=== PATIENT | male | born 2000 | race African-American/Black ===

== ENCOUNTER 2023-07-28 18:21 | Emergency (ER) | payer SELFPAY ==
[2023-07-28 19:22] VITALS: BP 117/67; PULSE 72; RESP 18; TEMP 36.9; O2SAT 97; BMI 32.3
--- NOTE | 2023-07-28 21:27 | ED.NAVMDI ---
HPI - Nausea/Vomiting/Diarrhea General Chief complaint: Nausea/Vomiting/Diarrhea Stated complaint: nausea and vomiting Time Seen by Provider: 07/28/23 21:18 Source: patient Mode of arrival: ambulatory Limitations: no limitations History of Present Illness HPI Narrative: 23-year-old male who was otherwise healthy came in for evaluation of nausea and vomiting since 03:00, patient had multiple vomiting while in the emergency department, no diarrhea, no sick contacts, no suspicion of exposure to bad food, no recent travel, patient also declined any abdominal discomfort. Patient smokes marijuana daily never had nausea or vomiting issue in the past. Related Data Allergies Allergy/AdvReac Type Severity Reaction Status Date / Time No Known Allergies Allergy Verified 07/28/23 19:22 Review of Systems Review of Systems: All other systems are reviewed and are negative Constitutional: Reports as per HPI and Reports no additional constitutional complaints Eyes: Reports as per HPI and Reports no additional eye complaints Reports system reviewed and no additional complaints, except as documented Cardiovascular: Reports as per HPI and Reports no additional cardiovascular complaints Respiratory: Reports as per HPI and Reports no additional respiratory complaints Gastrointestinal: Reports as per HPI and Reports no additional gastrointestinal complaints Genitourinary: Reports no additional female genitourinary complaints Musculoskeletal: Reports no additional musculoskeletal complaints Skin/Breast: Reports system reviewed and no additional complaints, except as docu Psychiatric: Reports no additional psychiatric complaints Endocrine: Reports no additional endocrine complaints Hematologic/Lymphatic: Reports no additional hematologic/lymphatic complaints Allergic/Immunologic: Reports no additional allergic/immunologic complaints Reports system reviewed and no additional complaints, except as documented and Reports Abnormal speech present [facility] Social History Social History Advance Directives: No Advance Directives Information Provided: No Physical Exam Vital Signs: Vital Signs: Last Vital Signs Temp 98.4 F 07/28/23 19:22 Pulse 72 07/28/23 19:22 Resp 18 07/28/23 19:22 BP 117/67 07/28/23 19:22 Pulse Ox 97 07/28/23 19:22 O2 Del Method Room Air 07/28/23 19:22 BMI result Body Mass Index 32.3 Vital signs have been reviewed and appear to be correct. Blood pressure elevated. Heart rate normal. Respiratory rate normal. Temperature normal. Oxygen saturation normal. Appearance: Alert. Oriented X3. No acute distress. Head: Normal external exam. Normocephalic. Atraumatic. No [place] signs noted. No raccoon eyes noted Eyes: PERRLA. EOMI. Conjunctiva and sclera normal. Eyelids normal. ENT: TM's Normal. Pharynx normal. Uvula midline. Moist mucous membranes. No trismus noted. No drooling noted. No muffled voice noted. Neck: Normal inspection. Neck supple. FROM. No adenopathy. Thyroid Normal. No meningeal signs. No neck mass noted. CVS: Normal heart rate and rhythm. Heart sound normal. No murmurs noted. Pulses normal throughout. Respiratory: No respiratory distress. Painless inspiration. Breath sounds normal. No wheezes/rales/rhonchi noted. Chest nontender. No accessory muscle usage noted or decreased air movement noted. Abdomen: Soft and nontender. Bowel sounds normal in all 4 quadrants. No distention noted. No organomegaly noted. No visible injury noted. Back: No CVA tenderness. Full range of motion noted. Skin: Skin warm and dry. Normal skin color. Normal skin turgor. No rashes/lesions/lacerations noted. Extremities: No lower extremity edema. Extremities exhibit normal range of motion. Extremities nontender. Neuro: Oriented X 3. Cranial nerve exam: II-XII are grossly intact No motor deficit. No sensory deficit. Reflexes normal. Course Reevaluation(s) Reevaluation #1: 23-year-old male came in for evaluation of nausea and vomiting, physical exam showed no abdominal pain, normal WBCs, normal electrolytes, UA is revealing RBCs patient declined any abdominal or flank pain. Patient now is able to tolerate p.o. intake with no nausea or vomiting. Patient's symptoms could be related to a daily smoking marijuana that was discussed with the patient. Time: 00:02 Medications Administered Discontinued Medications Generic Name Dose Route Start Last Admin Trade Name Freq PRN Reason Stop Dose Admin Famotidine 20 mg 07/28/23 21:25 07/28/23 22:27 Famotidine/Pf 20 Mg/2 Ml Vial IVPUSH 07/28/23 21:26 20 mg ONCE ONE Administration Sodium Chloride 1,000 mls @ 999 mls/hr 07/28/23 21:25 07/28/23 22:20 Ns IV 07/28/23 22:25 999 mls/hr .Q1H1M ONE Administration Ondansetron HCl 4 mg 07/28/23 21:25 07/28/23 22:27 Ondansetron Hcl 4 Mg/2 Ml Vial IVPUSH 07/28/23 21:26 4 mg ONCE ONE Administration Medical Decision Making Differential Diagnosis Differential Diagnoses: The differential diagnosis associated with the presentation includes ( Electrolyte abnormality, severe anemia, UTI, marijuana induced emesis, dehydration, food poisoning, gastroenteritis, gastritis.) Admission/Observation Consideration of admission/observation: Escalation of care including admission/observation considered Lab Data [facility] Lab Attestation statement: I reviewed the patient's lab results. 07/28/23 21:45 07/28/23 21:45 Labs: Lab Results 07/28/23 07/28/23 Range/Units 21:45 23:39 WBC 8.9 (4.8-10.8) X10*3/uL RBC 5.13 (4.60-5.80) X10*6/uL Hgb 14.4 (14.0-18.0) g/dl Hct 41.9 L (42.0-52.0) % MCV 81.7 (80.0-98.0) fL MCH 28.1 (27.0-33.0) pg MCHC 34.4 (31.0-36.0) g/dl RDW 12.6 (11.0-16.0) % Plt Count 277 (160-400) X10*3/uL MPV 9.2 L (9.4-12.4) fL Immature Gran % (Auto) 0.2 (0.0-0.4) % Neut % (Auto) 84.1 H (45-73) % Lymph % (Auto) 6.1 L (20-40) % [place] % (Auto) 9.5 (2-11) % Eos % (Auto) 0.0 (0-4) % Baso % (Auto) 0.1 (0-2) % Lymph # (Auto) 0.5 L (1.2-4.9) X10*3/uL [place] # (Auto) 0.9 (0.1-1.2) X10*3/uL Eos # (Auto) 0.0 (0.0-0.4) X10*3/uL Baso # (Auto) 0.0 (0.0-0.2) X10*3/uL Abs Immat Gran (auto) 0.02 (0.00-0.03) X10*3/uL Absolute Neuts (auto) 7.5 (2.0-8.3) x10*3/uL Absolute Nucleated RBC 0.000 (0.0-0.012) X10*3/uL Nucleated RBC % (auto) 0.0 (0.0-0.2) /100WBC Sodium 137 (135-145) mmol/L Potassium 3.4 (3.3-5.1) mmol/L Chloride 104 (96-108) mmol/L Carbon Dioxide 25 (22-29) mmol/L Anion Gap 11 L (12-20) BUN 11 (9-16) mg/dL Creatinine 1.03 (0.5-1.4) mg/dL Estim Creat Clear Calc 116.6 Estimated GFR > 60 Random Glucose 104 (60-115) mg/dL Calcium 9.3 (8.4-10.2) mg/dL Total Bilirubin 0.8 (0.0-1.0) mg/dL Direct Bilirubin 0.3 (0.0-0.5) mg/dL AST 22 (5-37) U/L ALT 17 (0-40) U/L Alkaline Phosphatase 51 (39-117) U/L Total Protein 7.3 (6.5-8.0) g/dL Albumin 4.5 (3.5-5.0) g/dL Lipase 15 (8-78) U/L Urine Color Dark Yellow Urine Appearance Clear Urine pH 6.0 (5.0-9.0) Ur Specific [place] >= 1.030 H (1.005-1.025) Urine Protein Trace (Neg-Trace) mg/dL Urine Glucose (UA) Negative (Negative) mg/dL Urine Ketones 40 (Negative) mg/dL Urine Blood Small (1+) H (Negative) Urine Nitrite Negative (Negative) Ur Leukocyte Esterase Negative (Negative) Urine RBC >20 H (0-2) /HPF Urine WBC 0-5 (0-5) /HPF Ur Squamous Epith Cells 0-2 (0-2) /HPF Urine Bacteria None Seen (None Seen) Hyaline Casts 0-2 (0-2) /LPF Chronic Conditions Patient?s care impacted by: Other ( Daily marijuana smoking) Discharge Plan Discharge Clinical Impression: Intractable vomiting Patient Disposition: Home, Self-Care Instructions: Acute Nausea and Vomiting (ED) Stand Alone Forms: Work/School Release
[2023-07-28 21:49] LABS: MANUAL DIFF FLAG NO
[2023-07-28 21:52] LABS: Basophils Percent Auto 0.1 % (0-2); Hematocrit 41.9 % (42.0-52.0); Hemoglobin 14.4 g/dl (14.0-18.0); Imm Gran Abs Auto 0.02 X10*3/uL (0.00-0.03); Imm Gran Pct Auto 0.2 % (0.0-0.4); Lymphocytes Absolute Auto 0.5 X10*3/uL (1.2-4.9); Lymphocytes Percent Auto 6.1 % (20-40); Mean Corpuscular HGB Conc 34.4 g/dl (31.0-36.0); Mean Corpuscular Hemoglobin 28.1 pg (27.0-33.0); Mean Corpuscular Volume 81.7 fL (80.0-98.0); Mean Platelet Volume 9.2 fL (9.4-12.4); Monocytes Absolute Auto 0.9 X10*3/uL (0.1-1.2); Monocytes Percent Auto 9.5 % (2-11); Neutrophils Absolute Auto 7.5 x10*3/uL (2.0-8.3); Neutrophils Percent Auto 84.1 % (45-73); Platelet Count 277 X10*3/uL (160-400); Red Blood Count 5.13 X10*6/uL (4.60-5.80); Red Cell Distribution Width 12.6 % (11.0-16.0); White Blood Count 8.9 X10*3/uL (4.8-10.8)
[2023-07-28 22:07] LABS: Alanine Aminotransferase 17 U/L (0-40); Albumin Level 4.5 g/dL (3.5-5.0); Alkaline Phosphatase 51 U/L (39-117); Anion Gap 11 (12-20); Aspartate Amino Transferase 22 U/L (5-37); Bilirubin Direct 0.3 mg/dL (0.0-0.5); Bilirubin Total 0.8 mg/dL (0.0-1.0); Blood Urea Nitrogen 11 mg/dL (9-16); Calcium 9.3 mg/dL (8.4-10.2); Carbon Dioxide 25 mmol/L (22-29); Chloride 104 mmol/L (96-108); Creatinine Clr Calc Pharmacy 116.6; Estimated Glomerular Filt Rate > 60; Glucose Random 104 mg/dL (60-115); Lipase 15 U/L (8-78); Potassium 3.4 mmol/L (3.3-5.1); Sodium 137 mmol/L (135-145); Total Protein 7.3 g/dL (6.5-8.0)
[2023-07-28] MEDS: 0.9 % Sodium Chloride 1,000 ML 999 ML IV (22:20)
[2023-07-28] MEDS: Famotidine/PF 20 MG/2 ML VIAL IVPUSH (22:27)
[2023-07-28] MEDS: ondansetron HCL 4 MG/2 ML VIAL IVPUSH (22:27)
[2023-07-28 23:45] LABS: Appearance Urine Clear; Color Urine Dark Yellow; Glucose Urine UA Negative (Negative); Leukocyte Esterase Urine Negative (Negative); Nitrite Urine Negative (Negative); Specific Gravity - Urine >= 1.030 (1.005-1.025); UMIC TRIGGER UACC YES; Urine Blood Small (1+) (Negative); Urine Ketones 40 mg/dL (Negative); Urine Protein Trace mg/dL (Neg-Trace)
[2023-07-28 23:56] LABS: Bacteria Urine None Seen (None Seen); Hyaline Casts Urine 0-2 /LPF (0-2); RBC Urine >20 /HPF (0-2); Squamous Epithelial Cell Urine 0-2 /HPF (0-2); WBC Urine 0-5 /HPF (0-5)
== END 2023-07-29 00:57 | disposition home or self-care (01) ==
PROVIDERS: Emergency Provider Emergency Medicine
DX: R11.2 Nausea with vomiting, unspecified (principal); F12.90 Cannabis use, unspecified, uncomplicated
CPT/HCPCS: 36415; 80048; 80076; 81001; 83690; 85025; 96374; 96375; 99283; 99284; J2405

== ENCOUNTER 2024-03-21 10:27 | Emergency (ER) | payer OTHER, SELFPAY ==
[2024-03-21 10:31] VITALS: BP 134/77; PULSE 75; RESP 18; TEMP 36.6; O2SAT 99; BMI 34.0
--- NOTE | 2024-03-21 11:33 | ED.SKABFB ---
HPI - Skin/Abscess/Foreign Bdy General Chief complaint: Skin/Abscess/Foreign Body Stated complaint: Poison komal? Time Seen by Provider: 03/21/24 10:43 Source: patient Mode of arrival: ambulatory Limitations: no limitations History of Present Illness ED Provider: Scott Winkler PA-C HPI narrative: 23-year-old male presents to the ER for evaluation of 2-3 weeks of a itchy and burning rash on his bilateral upper extremities that started 1 week ago. The rash started after he was working outside, doing some dot and was in the bushes. He is unsure if he was exposed to poison komal or poison oak. He started having a painful, itchy, burning rash that developed fluid-filled blisters. It has been worsening over the last 1 week. It is located in his bilateral arms and the backs of his hands. No rash on his trunk, face, genital region. No shortness a breath or wheezing. No fevers or chills. MD complaint: rash Onset (ago): week(s) (1) Location: LUE, RUE, L hand and R hand Severity: moderate Quality: burning and pruritic Pain Consistency: constant Relieving factors: none Exacerbating factors: none Context: other (Works outside, was in the bushes) Treatments prior to arrival: none Related Data Previous Rx's ?Medication ?Instructions ?Recorded hydrocortisone 2.5 % topical cream 1 appl topical BID PRN itching #30 03/21/24 grams prednisone 10 mg tablets in a dose See Taper PO DAILY #30 ea 03/21/24 pack Allergies Allergy/AdvReac Type Severity Reaction Status Date / Time No Known Allergies Allergy Verified 03/21/24 10:34 Review of Systems Review of Systems: Yes all other systems are reviewed and are negative [facility] Social History Social History Advance Directives: No Advance Directives Information Provided: No Do you have a plan to hurt others: No Plan Physical Exam Vital Signs: Vital Signs: Last Vital Signs Temp 97.8 F 03/21/24 11:48 Pulse 75 03/21/24 11:48 Resp 18 03/21/24 11:48 BP 134/77 03/21/24 11:48 Pulse Ox 99 03/21/24 11:48 O2 Del Method Room Air 03/21/24 11:48 BMI result Body Mass Index 34.0 Appearance: Alert. Oriented X3. No acute distress. HEENT: normal inspection CVS: Normal heart rate and rhythm. Pulses normal. Respiratory: No respiratory distress. Skin: Skin warm and dry. Normal skin color. Normal skin turgor. There is a erythematous, fluid filled rash with blisters and surrounding erythema located on the bilateral forearms, the dorsum of the hands. There is mild excoriations. Extremities: No peripheral edema, no joint swelling. Neuro: Oriented X 3. No motor deficit. No sensory deficit. Medical Decision Making Medical Decision Making MDM Narrative: 23-year-old male presents to the ER for evaluation of a burning and itchy rash on his bilateral arms after he worked outside in the [employer] a week ago. Examination is consistent with poison komal dermatitis. Will prescribe prednisone taper and topical treatments for symptomatic relief. Patient counseled on diagnosis and treatment including necessity of completing the prednisone taper to prevent rebound. Stable for discharge home with outpatient follow-up as needed. Differential Diagnosis Differential Diagnoses: The differential diagnosis associated with the presentation includes Poison komal, poison oak, contact dermatitis, allergic reaction Prescription Management I considered prescription management with: Antibiotic and Other (Prednisone) Critical Care Time Critical Care Time Critical Care Time: No Discharge Plan Discharge Clinical Impression: Poison komal Patient Disposition: Home, Self-Care Instructions: Poison Komal (ED) Additional Instructions: Take the prescribed prednisone taper as directed, complete the entire course. Use a topical steroid cream as needed for itching. You can also try Benadryl cream or spray. You can also try Benadryl pills if it is very itchy. Follow-up with your doctor as needed. If you develop new or worsening symptoms call 911 or come back to the ER for further evaluation. Prescriptions: New prednisone 10 mg tablets,dose pack See Taper PO DAILY Qty: 30 0RF Taper: Prednisone 40 mg daily for 3 Days and 0 Hour 30 mg daily for 3 Days and 0 Hour 20 mg daily for 3 Days and 0 Hour 10 mg daily for 3 Days and 0 Hour Rx Instructions: 40 mg Daily x3 days, 30 mg daily x3 days, 20 mg daily x3 days, 10 mg daily x3 days hydrocortisone 2.5 % cream 1 appl topical BID PRN (Reason: itching) Qty: 30 0RF Stand Alone Forms: Work/School Release Interventions: ED Discharge Assessment Last Done: 03/21/24 11:48 Discharge Date/Time: 03/21/24 11:48 Print Language: Macedonian
[2024-03-21 11:48] VITALS: BP 134/77; PULSE 75; RESP 18; TEMP 36.6; O2SAT 99
== END 2024-03-21 11:48 | disposition home or self-care (01) ==
PROVIDERS: Emergency Provider Emergency Medicine
DX: L23.7 Allergic contact dermatitis due to plants, except food (principal)
CPT/HCPCS: 99282

== ENCOUNTER 2025-05-26 13:47 | Emergency (ER) | payer SELFPAY ==
[2025-05-26 13:50] VITALS: BP 122/66; PULSE 97; RESP 18; TEMP 37.8; O2SAT 98; BMI 32.4
--- NOTE | 2025-05-26 13:50 | ED_ITS ---
HPI - General Adult General Chief complaint: Upper Respiratory Symptoms Stated complaint: influenza symptoms Time Seen by Provider: 05/26/25 14:30 Source: patient Mode of arrival: ambulatory Limitations: no limitations History of Present Illness ED Provider: DREA RITTER PA-C HPI narrative: 25 year old male presents to the ED today for evaluation of nasal congestion, cough, generalized weakness, myalgias since yesterday. Reports episode of vomiting this morning. No blood in emesis. Denies abdominal pain, diarrhea, constipation. His daughter is ill at home with similar symptoms. Up-to-date on vaccines. Denies chest pain, shortness of breath, difficulty breathing, hemoptysis. Related Data Previous Rx's ?Medication ?Instructions ?Recorded hydrocortisone 2.5 % topical cream 1 appl topical BID PRN itching #30 03/21/24 grams prednisone 10 mg tablets in a dose See Taper PO DAILY #30 ea 03/21/24 pack benzonatate 100 mg capsule 100 mg PO BID PRN cough #20 caps 05/26/25 ondansetron 4 mg disintegrating 4 mg PO Q8H PRN nausea and 05/26/25 tablet vomiting #10 tabs oseltamivir 75 mg capsule (Tamiflu) 75 mg PO BID 5 day s #10 caps 05/26/25 Allergies Allergy/AdvReac Type Severity Reaction Status Date / Time No Known Allergies Allergy Verified 05/26/25 13:52 Review of Systems Review of Systems: Yes all other systems are reviewed and are negative [facility] Past Medical History Attestation statement: The following information was validated with the patient. Source: old records reviewed and nursing notes reviewed Social History Social History Advance Directives: No Advance Directives Information Provided: No Do you have a plan to hurt others: No Plan Physical Exam ED Vital Signs: Vital Signs - 24 hr 05/26/25 13:50 05/26/25 16:12 Temperature 100.1 F 100.1 F Pulse Rate 97 97 Respiratory Rate 18 18 Blood Pressure 122/66 122/66 Pulse Oximetry 98 98 Oxygen Delivery Method Room Air Room Air BMI result Body Mass Index 32.4 Vital signs stable General: in no acute distress. Skin: Warm, dry, intact. No rashes or lesions. Head: Normocephalic, atraumatic. EENT: Hearing is intact b/l. Conjunctiva clear. PERRLA. Moist mucous membranes.? Posterior oropharynx without erythema or edema. No tonsillar exudates or masses. Uvula midline. Controlling secretions and speaking in complete sentences. Neck: Supple without LAD Cardiac: Chest wall symmetric. RRR Lungs: Normal respiratory effort without accessory muscle use. CTA bilaterally. No rales, rhonchi, or wheezes.? Abdomen: Soft, non-tender, non-distended. No rebound tenderness or guarding. Positive BS x4. Ext: Upper and lower extremities atraumatic, without tenderness, deformity, swelling or erythema Neuro: AOx3. Normal speech. Ambulating with steady gait. Course Course Course Narrative: Patient tested positive for influenza A. Negative COVID, RSV. Zofran given in ED, tolerating PO. advised motrin/tylenol. Tamiflu, Zofran and Tessalon Perles sent to pharmacy. Patient has remained stable throughout ED visit today. Discussed worrisome signs and symptoms and when to return to the ED. All questions answered at this time. Patient is agreeable with disposition and stable for discharge. Medications Administered Discontinued Medications Generic Name Dose Route Start Last Admin Trade Name Freq PRN Reason Stop Dose Admin Ibuprofen 600 mg 05/26/25 15:42 05/26/25 16:09 Ibuprofen 600 Mg Tablet PO 05/26/25 15:43 600 mg ONCE ONE Administration Ondansetron HCl 4 mg 05/26/25 15:01 05/26/25 15:10 Ondansetron Odt 4 Mg Tab.Rapdis TRANSLINGU 05/26/25 15:02 4 mg ONCE ONE Administration Oseltamivir Phosphate 75 mg 05/26/25 15:42 05/26/25 16:09 Oseltamivir Phosphate 75 Mg Capsule PO 05/26/25 15:43 75 mg ONCE ONE Administration Medical Decision Making Medical Decision Making [facility] Narrative: 25 year old male presents to the ED today for evaluation of nasal congestion, cough, generalized weakness, myalgias since yesterday. Differential diagnosis includes viral syndrome, strep throat, headache, migraine, pneumonia, bronchitis. Unlikely [employer], retropharyngeal abscess, epiglottitis, peritonsillar abscess. Plan for viral swabs. Differential Diagnosis Differential Diagnoses: The differential diagnosis associated with the presentation includes As above Admission/Observation Not indicated Lab Data [facility] Lab Attestation statement: I reviewed the patient's lab results. As above Labs: Lab Results 05/26/25 Range/Units 13:57 Influenza Type A (PCR) POSITIVE A (Negative) Influenza Type B (PCR) NEGATIVE (Negative) RSV RNA Qual (PCR) NEGATIVE (Negative) SARS-CoV-2 RNA (RT-PCR) NEGATIVE (Negative) Independent Historian Clinical information obtained from an independent historian. History obtained from or confirmed by: Spouse External Record Review External record reviewed: Inpatient record Prescription Management I considered prescription management with: Antiviral (Tamiflu) and Other (Tessalon Perles, Zofran) Social Determinants Patient?s care significantly limited by Social Determinants of Health including: Other Social Determinant of Health Critical Care Time Critical Care Time Critical Care Time: No Discharge Plan Discharge Clinical Impression: Influenza A Patient Disposition: Home, Self-Care Instructions: Influenza (ED) Additional Instructions: You tested negative for influenza A. You tested negative for COVID and RSV. Influenza is a virus and does not warrant treatment with antibiotics. Treatment for influenza is supportive. Make sure you are staying adequately hydrated and getting lots of rest. I am sending tessalon perles to your pharmacy for you to take as needed for cough. Zofran has been sent to your pharmacy for you to take as needed for nausea and vomiting. I am starting you on tamiflu. This should help to decrease the severity of your symptoms. Alter ibuprofen and Tylenol for fevers and body aches. Follow up with your primary care provider. If symptoms persist or worsen please return to the emergency department. The case of an emergency call 911. Prescriptions: New oseltamivir [Tamiflu] 75 mg capsule 75 mg PO BID 5 Days Qty: 10 0RF ondansetron 4 mg tablet,disintegrating 4 mg PO Q8H PRN (Reason: nausea and vomiting) Qty: 10 0RF benzonatate 100 mg capsule 100 mg PO BID PRN (Reason: cough) Qty: 20 0RF No Action prednisone 10 mg tablets,dose pack See Taper PO DAILY Qty: 30 0RF Taper: Prednisone 40 mg daily for 3 Days and 0 Hour 30 mg daily for 3 Days and 0 Hour 20 mg daily for 3 Days and 0 Hour 10 mg daily for 3 Days and 0 Hour Rx Instructions: 40 mg Daily x3 days, 30 mg daily x3 days, 20 mg daily x3 days, 10 mg daily x3 days hydrocortisone 2.5 % cream 1 appl topical BID PRN (Reason: itching) Qty: 30 0RF Referrals: Physician,None [Primary Care Provider, Medical] Stand Alone Forms: Work/School Release Interventions: ED Discharge Assessment Last Done: 05/26/25 16:12 Discharge Date/Time: 05/26/25 16:13 Print Language: Icelandic
--- OUTSIDE RECORDS SUMMARY | 2025-05-26 14:03 | XMS_ITS | Data Portability ---
Author Organization [facility], [address] Address [address] [place] [address] Assessment No assessment recorded. Plan of Treatment Reminders Order Date Submit Date Provider Last Modified By Organization Details Last Modified Time Details Appointments None recorded. Lab None recorded. Referral None recorded. Procedures None recorded. Surgeries None recorded. Imaging XR, hand, 3 or more view 2022 023 [place] [facility], [address] [place] [address], [address], 20:11:52 Medication Orders amoxicillin 875 mg-potassiu m clavulanate 125 mg tablet 2022 023 [facility] #[id number], [address] [place], [address], 3 14:38:59 Allergy Relief (fluticason e) 50 mcg/actuati on nasal spray,suspe nsion 2022 023 [id number] [address] [place], [address], 3 14:38:58 fexofenadin e-pseudoeph edrine ER 180 mg-240 mg tablet,ext. release 24 hr 2022 023 [id number] [address] [place], [address], 3 14:38:57 ibuprofen 600 mg tablet 2022 023 [facility] #[id number], [address] [facility] [place], [address], 14:13:56 Patient TargetsNo targets recorded. Patient Instructions Encounter Date Encounter Id Patient Instructions Last Modified By Organization Details Last Modified Time 09/05/2022 [id number] Elevate injured extremity to help decrease swelling Ice the area 15 minutes every 3-4 hours ibuprofen and/or tylenol as needed for pain Follow up with [facility] or your pcp if the injury fails to heal in the coming weeks [email or web address] Not available 09/05/2022 19:13:17 A hand can break (fracture) during sports, a fall, or a car crash. The break may happen when your hand twists, is hit, or is used to protect you in a fall. Fractures can range from a small, hairline crack, to a bone or bones broken into two or more pieces. Your treatment depends on how bad the break is. Your doctor may have put your hand in a brace, splint, or cast to allow it to heal or to keep it stable until you see another doctor. It may take weeks or months for your hand to heal. You can help it heal with some care at home. You heal best when you take good care of yourself. Eat a variety of healthy foods, and don't smoke. How can you care for yourself at home? Put ice or a cold pack on your hand for 10 to 20 minutes at a time. Try to do this every 1 to 2 hours for the next 3 days (when you are awake). Put a thin cloth between the ice and your cast or splint. Keep your cast or splint dry. Follow the cast care instructions your doctor gives you. If you have a splint, do not take it off unless your doctor tells you to. Take pain medicines exactly as directed. If the doctor gave you a prescription medicine for pain, take it as prescribed. If you are not taking a prescription pain medicine, ask your doctor if you can take an kqfz-gar-aylcsjc medicine. Prop up your hand on pillows when you sit or lie down in the first few days after the injury. Keep your hand higher than the level of your heart. This will help reduce swelling. Follow instructions for exercises to keep your arm strong. Wiggle your uninjured fingers often to reduce swelling and stiffness, but do not use that hand to grasp or carry anything. Not available 09/05/2022 18:48:34 12/08/2022 [id number] An ear infection may start with a cold and affect the middle ear (otitis media). It can hurt a lot. Most ear infections clear up on their own in a couple of days and do not need antibiotics. Also, antibiotics do not work against viruses, which may be the cause of your infection. Regular doses of pain relievers are the best way to reduce your fever and help you feel better. How can you care for yourself at home? Take pain medicines exactly as directed. If the doctor gave you a prescription medicine for pain, take it as prescribed. If you are not taking a prescription pain medicine, take an eatp-lzc-xvmblej medicine, such as acetaminophen (Tylenol), ibuprofen (Advil, Motrin), or naproxen (Aleve). Read and follow all instructions on the label. Do not take two or more pain medicines at the same time unless the doctor told you to. Many pain medicines have acetaminophen, which is Tylenol. Too much acetaminophen (Tylenol) can be harmful. Plan to take a full dose of pain reliever before bedtime. Getting enough sleep will help you get better. Try a warm, moist face cloth on the ear. It may help relieve pain. If your doctor prescribed antibiotics, take them as directed. Do not stop taking them just because you feel better. You need to take the full course of antibiotics. Not available 12/08/2022 14:38:54 Reason for Referral None Reported. Results Created Date Observation Date Name Description Value Unit Range Abnormal Flag Note LastModifiedBy Organization Detail LastModifiedTime 09/06/19 23 09/05/2022 XR, hand, 3 or more view No observ ation record ed. [email or web address] [facility] [address] [facility], [place], [address], 09/06/2022 07:58:47 Result Notes None recorded. Problems No Known Problems Medical Equipment None Reported. Allergies No known drug allergies Medications Name Sig Start Date Stop Date Status Note LastModified by Organization Details LastModified Time ibuprofen 600 mg tablet Take 1 tablet 3 times a day by oral route with meals for 10 days. 12/08 completed Not Available Not Available Not Available fluticasone propionate 50 mcg/actuati on nasal spray,suspe nsion SPRAY 1 SPRAY INTO EACH NOSTRIL EVERY DAY DIRECTED FOR 30 DAYS FOR ALLERGY SYMPTOMS active Not Available Not Available No t Available amoxicillin 875 mg-potassiu m clavulanate 125 mg tablet Take 1 tablet every 12 hours by oral route with meals for 10 days. 2022 active Not Available Not Available Not Wander mallory fexofenadin e-pseudoeph edrine ER 180 mg-240 mg tablet,ext. release 24 hr Take 1 tablet every day by oral route in the evening for 10 days. 2022 active Not Available Not Available Not Wander mallory Bin[employer]NOW COVID-19 Ag Self Test kit TEST DIRECTED TODAY 09/05 completed Not Available Not Available Not Available Vitals Date Recorded Body height Body mass index (BMI) Body weight Pain severity - 0-10 verbal numeric rating [Score] - Reported Oxygen saturation Heart rate Respiratory rate Body temperature Systolic And Diastolic Provider Name and Address Organization Details Last Updated DateTime 3 167.64 cm 32.3 kg/m2 97693.4 7 g 6 99 % 69 /min 20 /min 98.3 [degF] 115/75 mm[Hg] Sharda Carnes [employer] [facility] 3 17:47:04 Date Recorded Body height Body mass index (BMI) Body weight Pain severity - 0-10 verbal numeric rating [Score] - Reported Respiratory rate Oxygen saturation Heart rate Body temperature Systolic And Diastolic Provider Name and Address Organization Details Last Updated DateTime 3 167.64 cm 32.3 kg/m2 10304.4 7 g 0 16 /min 99 % 60 /min 98.1 [degF] 111/76 mm[Hg] MI HACKETT PA [employer] [facility] 3 14:15:35 Social History Question Answer Notes LastModified by Organizat ion Details LastModified Time Tobacco Smoking Status Never Smoker Sharda mcmillan [place] - [facility] 09/05/2022 17:45:30 Which Illicit Or Recreational Drugs Have You Used? Marijuana Information not available 12/08/2022 Have You Had Direct Contact, Or Contact During Intimacy, With Monkeypox Rash, Scabs, Or Body Fluids From A Person With Monkeypox? No Information not available 09/05/2022 Have You Recently Traveled Abroad? No Information not available 09/05/2022 Sex: Unknown Functional Status Question Answer Note LastModified by Organizat ion Details LastModified Time Do you use any illicit or recreational drugs? Yes [email or web address] Information not available 12/08/2022 Do you or have you ever used any other forms of tobacco or nicotine? Yes [email or web address] Information not available 12/08/2022 What is your level of alcohol consumption? None Information not available 09/05/2022 Do you or have you ever used e-cigarettes or vape? Current user of electronic cigarettes [email or web address] Information not available 12/08/2022 Mental Status None recorded. Family History Relationship Description Onset Age of this Age Resolved Age Notes LastModified by Organization Details LastModified Time Father No current problems or disability Not available 09/05 17:45:21 Mother No current problems or disability Not available 09/05 17:45:21 Medical History No medical history recorded. Past Encounters Encounter ID Performer Location Encounter Start Date Encounter Closed Date Diagnosis/Indication Diagnosis SNOMED-CT Code Diagnosis ICD10 Code Diagnosis IMO Codes Diagnosis Note [id number] [address] [place] [address] 09/09/2019 18:50:34 09/09/2019 19:49:46 [id number] Guillermo Obrien NP [address] [place] [address] 09/05/2022 17:35:53 09/05/2022 19:15:32 Contusion of right hand 3336758916 [id number] S60.221A [id number] Guillermo Obrien NP [address] [place] [address] 12/08/2022 13:39:42 12/08/2022 14:42:04 Acute bilateral otitis media 831215275 H66.93 Health Concerns Section Related Observation LastModified by Organization Detai ls LastModified Time None Recorded Concern Status LastModified by Organization Details LastModified Time None Recorded Advance Directives Directive None Recorded Payers Insurance Date Sequence Insurance Name Policy Number Policy [place] Covered Member ID [place] Member ID Guarantor Name 12/08/2022 1 [employer] (MEDICAID HMO) [id number] Lalo Calvert Eduar [id number] Lalo Witt Notes Date Note Type Note Provider Name and Address Organization Details Recorded Time 09/06/19 23 text/htm l Wrist / Hand InjuryReported by PatientHPIFor associated symptoms, patient reportspainandswellingbut reportsno redness,no ecchymosis, andno fever. For source of patient information, patient reportspatient arrived at urgent care ambulatory. For location, patient reportsright. For severity, patient reportsmoderate. For duration, patient reports1 days. For hand dominance, patient reportsright. For aggravating factors, patient reportslifting,carrying,gripp ing, androm. For previous injury, patient reportsno prior injury to affected body part. For previous treatment, patient reportsnone. For prior imaging, patient reportsnone. Guillermo Obrien NP [address] [place], [address], [place] - [facility] 09/05/2022 19:14:08 12/09/19 23 text/htm l Ear Pain Brief HPIReported by PatientHPIFor location, patient reportspain radiates to neckbut reportsbilateral. For quality, patient reportsaching painandsharp pain. For context, patient reportsrecent ear infection. For associated symptoms, patient reportscough,nasal congestion, andnasal discharge. For onset/timing, patient reportsintermittent painandgradual onset. For duration, patient reportsoccurs dailyandsensation/episode variable length. For severity, patient reportsgetting worseandcurrent pain 5/10. For alleviating factors, patient reportsototopical antibiotics: ___andnasal steroid spray. For aggravating factors, patient reportssinus infections,allergies, andirrigation of ear. CongestionReported by Patientnasal congestion with post nasal drip x 3 days. denies nay fever or fever with chills. no SOB or respiratory distress. Guillermo Obrien NP [address] [place], [address], [place] - [facility] 12/08/2022 14:39:10
[2025-05-26 14:44] LABS: Resp Syncy Virus RNA Qual PCR NEGATIVE (Negative); SARS COV2 PCR INHOUSE NEGATIVE (Negative)
[2025-05-26 16:12] VITALS: BP 122/66; PULSE 97; RESP 18; TEMP 37.8; O2SAT 98
== END 2025-05-26 16:13 | disposition home or self-care (01) ==
PROVIDERS: Physician Assistant Medical; Emergency Provider Emergency Medicine
DX: J10.1 Influenza due to other identified influenza virus with other respiratory manifestations (principal); R09.81 Nasal congestion; R05.9 Cough, unspecified; M79.10 Myalgia, unspecified site; Z03.818 Encounter for observation for suspected exposure to other biological agents ruled out
CPT/HCPCS: 87637; 99283